=== PATIENT | male | born 2000 | race Caucasian/White ===

== ENCOUNTER 2019-05-16 19:21 | Emergency (ER) | payer BC ==
--- OUTSIDE RECORDS SUMMARY | 2019-05-16 19:36 | XMS REPORT | Continuity of Care Document ---
:2000 External Reference #:[id number] Author Name Gilles Rodrigez M.D. Address [address] [place] [address] [place] [address] Problems Description No Active Problems Social History Type Date Description Comments Sex Unknown Tobacco Use Start: Unknown Patient has never smoked Smoking Status Reviewed: 09/25/18 Patient has never smoked Allergies, Adverse Reactions, Alerts Description No Known Drug Allergies Medications Active Medications SIG Qnty Indications Ordering Provider Date Adapalene apply over face 45units L70.0 Gilles Rodrigez, 09/25/2018 0.1% Cream at night M.D. Doxycycline 1 cap by mouth 30caps L70.0 Gilles Rodrigez, 05/29/2018 Monohydrate once daily.avoid M.D. 100mg sun. Capsules Benzoyl Peroxide apply over skin 45gm L70.0 Gilles Rodrigez, 01/11/2017 5% Gel every in the M.D. morning Fluoritab 1/2 po qd 60units Gilles Elia, 08/05/2014 2.2(1F) mg M.D. Chewtabs Medications Administered in Office Medication SIG Qnty Indications Ordering Provider Date TB Marilee Test Lauren Meeks M.D. 08/25/2000 Injection Immunizations CPT Code Status Date Vaccine Lot # [id number] Given 09/25/2018 Meningococcal B Recombinant Protein And Outer [id number] Membrane [Bexsero] 21735 Given 06/30/2016 Flu Inj Quad 6mo+ VFC Only [] [id number] 58063 Given 08/06/2015 Meningococcal A,C,Y,W135 (Menactra) Preservative [id number] Free 02221 Given 08/06/2015 HPV 9 Gardasil 9 [id number] 10075 Given 06/17/2015 Flu Mist Quadrivalent [id number] 20694 Given 08/05/2014 HPV 4 Gardasil 4 [id number] 50655 Given 06/21/2014 Flu Mist Quadrivalent [id number] 92422 Given 07/29/2013 HPV 4 Gardasil 4 [id number] 62079 Given 05/11/2013 Flu Mist Quadrivalent [id number] 34036 Given 07/27/2012 Flu Vacc Nasal Mist Trivalent (FluMist) [id number] 57765 Given 07/21/2011 Flu Vacc Nasal Mist Trivalent (FluMist) [id number] 66832 Given 07/21/2011 Varicella (Chicken Pox) Immunization [id number] 75890 Given 07/20/2010 Meningococcal A,C,Y,W135 (Menactra) Preservative [id number] Free 91958 Given 07/20/2010 Flu Vacc Nasal Mist Trivalent (FluMist) [id number] 10638 Given 07/13/2009 TdaP Immunization Age 7+ [id number] 23812 Given 07/13/2009 Flu Vacc Nasal Mist Trivalent (FluMist) [id number] 55983 Given 05/13/2008 Flu Vacc Nasal Mist Trivalent (FluMist) [id number] 10468 Given 07/09/2007 Flu Vacc Nasal Mist Trivalent (FluMist) [id number] 57841 Given 07/09/2007 Hepatitis A Vaccine Pediatric/Adolescent 2 [id number] Dose Schedule 41644 Given 08/02/2006 Hepatitis A Vaccine Pediatric/Adolescent 2 [id number] Dose Schedule 86680 Given 05/20/2003 DTaP Immunization under age 7 14231 Given 05/20/2003 MMR Virus Immunization 83721 Given 05/20/2003 Poliomyelitis Immunization 92936 Given 06/04/2001 Hepatitis B Imm Age 0 to 19yr 75487 Given 11/10/2000 Hepatitis B Imm Age 0 to 19yr 40485 Given 11/10/2000 DTaP & Hib Immunization 05480 Given 11/10/2000 Pneumococcal 7valent - Prevnar 57986 Given 08/25/2000 Pneumococcal 7valent - Prevnar 67027 Given 08/25/2000 MMR Virus Immunization 82045 Given 08/25/2000 Varicella (Chicken Pox) Immunization 10046 Given 08/25/2000 Hepatitis B Imm Age 0 to 19yr 88480 Given 05/04/2000 Poliomyelitis Immunization 26123 Given 05/04/2000 DTP Immunization 08560 Given 05/04/2000 Hib Vaccine 10333 Given 1999 Poliomyelitis Immunization 13990 Given 1999 DTP Immunization 50456 Given 1999 Hib Vaccine 89991 Given 1999 Poliomyelitis Immunization 94319 Given 1999 DTP Immunization 07200 Given 1999 Hib Vaccine Vital Signs Date Vital Result Comment 04/17/2019 8:49am Weight 176.00 lb Weight 79.834 kg Weight Percentile 77th Body Temperature 98.3 F 09/25/2018 8:42am Height 75.25 inches 6'3.25" Height Percentile 97 % Weight 166.00 lb Weight 75.298 kg Weight Percentile 68th Heart Rate 63 /min Respiratory Rate 12 /min BP Systolic 121 mmHg BP Diastolic 71 mmHg BMI (Body Mass Index) 20.6 kg/m2 Body Mass Index Percentile 22 % Right ear audiology results 20 db Left ear audiology results 20 db Left Visual Acuity Distance 20/20 Right Visual Acuity Distance 20/20 Results Description No Information Available Procedures Description No Information Available Medical Devices Description No Information Available Encounters Description No Information Available Assessments Date Code Description Provider 04/17/2019 L70.0 Acne vulgaris Gilles Rodrigez M.D. Plan of Treatment 04/17/2019 - Gilles Rodrigez M.D.L70.0 Acne vulgarisFollow up:. (Follow up) 2 to 3 months, OC15 Functional Status Description No Information Available Mental Status Description No Information Available Referrals Description No Information Available
[2019-05-16 19:43] VITALS: BP 137/70
[2019-05-16] MEDS ORDERED: Al Hydrox/Mg Hydrox/Simet LIQ* 30 ML UDC PO ONE (20:01)
--- NOTE | 2019-05-16 20:08 | UC ---
Abdominal Pain Male HPI - HPI Summary HPI Summary: 19-year-old male comes in with a chief complaint of upper abdominal pain. About 5 hours ago patient started with mid and upper abdominal cramping pain. Gradually get worse is about 8 out of 10. Up to about an hour ago pain was bad as it 8 out of 10. In the last hour the pain is decreased now it's about a 2-3 out of 10. Primarily in the epigastrium. Patient's had similar episodes like this in the past. Usually it's shorter duration and not as severe and the pain is more oscillating rather than constant. He's had no prior medical workup for this. No fevers. No lower abdominal pain. No change in bowel or bladder. In between these episodes he does not suffer from GERD symptoms. - History of Current Complaint Chief Complaint: UCAbdominalPain Stated Complaint: ABD PAIN Time Seen by Provider: 05/16/19 19:47 Pain Intensity: 3 - Allergies/Home Medications Allergies/Adverse Reactions: Allergies Allergy/AdvReac Type Severity Reaction Status Date / Time No Known Allergies Allergy Verified 05/16/19 19:44 Home Medications: Home Medications Ibuprofen TAB* [Advil TAB*] 200 mg PO Q6H PRN 05/16/19 [History Confirmed ] Minocycline HCl 50 mg PO DAILY 05/16/19 [History Confirmed 05/16/19] PMH/Surg Hx/FS Hx/Imm Hx Previously Healthy: Yes - Surgical History Surgical History: None - Family History Known Family History: Positive: Non-Contributory - Social History Alcohol Use: Weekly Substance Use Type: None Smoking Status (MU): Never Smoked Tobacco Review of Systems All Other Systems Reviewed And Are Negative: Yes Constitutional: Positive: Other - SEE HPI Skin: Positive: Negative Eyes: Positive: Negative ENT: Positive: Negative Respiratory: Positive: Negative Cardiovascular: Positive: Negative Gastrointestinal: Positive: Abdominal Pain Genitourinary: Positive: Negative Motor: Positive: Negative Neurovascular: Positive: Negative Musculoskeletal: Positive: Negative Neurological: Positive: Negative Psychological: Positive: Negative Is Patient Immunocompromised?: No Physical Exam Triage Information Reviewed: Yes Appearance: Well-Appearing, No Pain Distress, Well-Nourished Vital Signs: Initial Vital Signs Temp 98.6 F 05/16/19 19:39 Pulse 79 05/16/19 19:39 Resp 16 05/16/19 19:39 BP 137/70 05/16/19 19:39 Pulse Ox 100 05/16/19 19:39 Vital Signs Reviewed: Yes Eye Exam: Normal Eyes: Positive: Conjunctiva Clear Neck: Positive: Supple Respiratory: Positive: Lungs clear, Normal breath sounds, No respiratory distress Cardiovascular: Positive: RRR Abdomen Description: Positive: Other: - Patient does have some discomfort with heel strike. Negative obturator sign. Patient is nontender to palpation of the lower abdomen to include McBurney's point. Mild tenderness in the right upper quadrant. Patient is most tender in the epigastrium. No rebound. No guarding. Bowel Sounds: Positive: Present Musculoskeletal: Positive: Strength Intact, ROM Intact Neurological: Positive: Alert Psychological: Positive: Age Appropriate Behavior Skin Exam: Normal Abd Pain Male Course/Dx - Course Course Of Treatment: In clinic patient has pain on initial presentation was a 2-3 out of 10. On examination he was mildly tender in the epigastrium. There is no rebound no guarding. Positive bowel sounds. No fever. Vital signs stable. Patient was given Maalox 30 mL's in clinic pain went down even more. We discussed possible reasons for the epigastric and abdominal pain. No evidence of appendicitis on exam. The plan is to treat with an antacid medicine and have him follow-up with gastroenterology. We discussed that if the pain returned or especially for return in the right lower quadrant for the appendix was to get further evaluation emergency Department. - Differential Dx/Clinical Impression Provider Diagnosis: Epigastric abdominal pain Discharge ED - Sign-Out/Discharge Documenting (check all that apply): Patient Departure All imaging exams completed and their final reports reviewed: No Studies - Discharge Plan Condition: Stable Disposition: HOME Prescriptions: Omeprazole 20 mg PO BID #30 capsule. Patient Education Materials: Acute Abdominal Pain (ED), Epigastric Pain (ED) Forms: *School Release Referrals: Mariusz Rodrigez MD [Primary Care Provider] - Charles Izaguirre DO [Doctor of Osteopathy] - Additional Instructions: FOLLOW UP WITH GASTROENTEROLOGY. GO TO THE EMERGENCY DEPARTMENT IF YOUR CONDITION WORSENS; PAIN, FEVER, YOU FEEL ILL, BLOOD IN YOUR STOOL OR ANY QUESTIONS OR CONCERNS. - Billing Disposition and Condition Condition: STABLE Disposition: Home
[2019-05-16] MEDS ORDERED: Pantoprazole TAB * 40 MG TAB PO ONE (20:18)
== END 2019-05-16 20:36 | disposition home or self-care (01) ==
LOC: UCEAST 19:21
DX: R10.13 Epigastric pain (principal)
CPT/HCPCS: 99212; A9270-GY; G0463